=== PATIENT | male | born 1955 | race Caucasian/White ===

== ENCOUNTER 2017-03-07 08:56 | Day surgery (SDC) | payer OTHER ==
[~2017-03-07] VITALS: Ht 188 cm; Wt 72.5 kg
[2017-03-07] VITALS (10 sets, daily range): BP systolic 128–153; BP diastolic 77–96; PULSE 62–79; RESP 13–18; O2SAT 93–99
[~2017-03-07 08:56] MED LIST: ALBU8.5H2 INHALATION; ASPI-973 PO; CAFFEINE; CeFAZolin 2 Gm/50 mL D5W IV Premix IV ONE; IBUP200C PO; SALM50DI IH
[2017-03-07] MEDS ORDERED: Ondansetron 2 mg/mL 2 mL Inj ONE (08:57)
[2017-03-07] MEDS ORDERED: MetoCLOpramide 5 mg/mL 2 mL Inj ONE (08:57)
[2017-03-07] MEDS ORDERED: Rocuronium 10 mg/mL 5 mL Inj ONE (08:57)
[2017-03-07] MEDS ORDERED: Dexamethasone 4 mg/mL Inj ONE (08:57)
[2017-03-07] MEDS ORDERED: fentaNYL-PF 50 mCg/mL 2 mL Inj ONE (08:57)
[2017-03-07] MEDS ORDERED: Phenylephrine 10,000 mCg/mL Inj ONE (08:57)
[2017-03-07] MEDS ORDERED: Propofol 10,000 mCg/mL 20 mL Inj ONE (08:57)
[2017-03-07] MEDS: Lactated Ringer's 1,000 ML IV SCH ×2 (09:09→12:21)
[2017-03-07] MEDS ORDERED: Lactated Ringer's 1,000 ML IV SCH (12:04)
[2017-03-07] MEDS ORDERED: Lactated Ringer's 500 ML IV PRN (12:04)
--- NOTE | 2017-03-07 12:04 | PCM.HPANE ---
Patient Data Surgeon Admitting Provider: Attending Provider:Caryn Jaquez MD Primary Care Physician:Acacia Other Provider:Martin Ga Anesthesia Reason for Visit Right Inguinal Hernia Ht/WT & BMI Height (Feet): 6 Height (Inches): 2 Weight (Kilograms): 72.5 Body Mass Index 20.00 Allergies Coded Allergies: Penicillins (Verified Allergy, Unknown, hives, 03/01/17) Past Anesthesia History Anesthesia History: Denies:: Abnormal Airway, Anesthesia Reactions, Difficult Intubation, Fam Anesthesia Reaction, Fam Malignant Hypertherm, Malignant Hyperthermia Diabetes History Hx Diabetes?: No MRSA MRSA: No Medications Home Meds Incl Beta Rosalva: No Reported Medications [caffeine] No Conflict Check Daily oral caffeine supplement 03/01/17 Ibuprofen 200 Mg [id number] Mg PO QID PRN For Pain Ref 0 03/01/17 Salmeterol Xinafoate (Serevent Diskus)50 Mcg/Puff Inhaler1,400 Mcg IH PRN For Shortness of Breath 03/01/17 Aspirin 81 Mg Dajlbu01 Mg PO DAILY Ref 0 03/01/17 Albuterol HFA (Proair HFA)8.5 Gm Hfa.aer.ad2 Puffs INHALATION Q4H PRN For Shortness of Breath #1 INHALER 03/01/17 History History of ENT Problems?: No HEENT History: Denies:: Abnormal Airway Difficult Intubation Dysphagia Hearing Problem Sinus Problem TMJ Denture Type: Full- Upper Teeth Condition: Missing Teeth Hx of Heart Problems?: No Cardiovascular History: Denies:: AICD Abdominal Aortic Aneurism Atrial Fibrillation Cardiac Surgery Chest Pain Congestive Heart Failure Coronary Artery Disease Edema Heart Murmur Hypertension Irregular Heartbeat Pacemaker Peripheral Vascular Rheumatic Fever Thrombophlebitis Valvular Heart Disease Hx of Respiratory Problem?: Yes Respiratory History: Positive for:: COPD Cough Use of Inhalers / NEBS Denies:: Asthma Chest Surgery Dyspnea Emphysema Hemoptysis Oxygen Administration Pneumonia Pulmonary Embolism Tuberculosis Use of C-PAP Machine Hx Neurologic Problems?: No Neurological History: Denies:: Alzheimer's Disease CVA Dementia Dizziness Headaches Multiple Sclerosis Parkinson's Disease Peripheral Neuropathy Seizures TIA Hx of GI Problems?: Yes Gastrointestinal History: Denies:: Cirrhosis Diverticulitis Gall Bladder Disease Gastroesphageal Reflux Gastrointestinal Bleeding Heartburn Hepatitis Hiatal Hernia Liver Disease Rectal Bleeding Other GI Pertinent History: right inguinal hernia current admission problem Hx of Problems?: No Genitourinary History: Denies:: HX of Hemodialysis Kidney Stones Urinary Tract Infection HX of Peritoneal Dialysis: No Male Hx: Positive for:: Scrotal Mass Testicular Surgery Denies:: Prostate Problems Skin History: Denies:: History Skin Disorders? Pressure Ulcers Hx Musculoskeletal Problems?: Yes Musculoskeletal History: Positive for:: Back Injury ([facility] back strain r/t work - sees [facility] chiropractor) Denies:: Degenerative Joint Fibromyalgia Joint Replacement Musculoskeletal Trauma Myasthenia Gravis Osteoarthritis Rheumatoid Arthritis Systemic Lupus Hx of Psycho/Social Problems?: No Psycho Social History: Denies:: Anxiety Bipolar Disorder Hx Depression Suicide Attempt Hx Surgeries?: Yes (appe) Hx Any Other Health Problems?: Yes Other History: Denies:: Cancer Thyroid Disease Hx Diabetes: No Hx Alcohol Use: YesAlcoholic Drinks Per Day: 6-12 beers 3xweekHave You Smoked inLast 12 mo: Yes Stop/Bang S-Snoring: Do You Snore Loudly: No T-Tired: feel tired, fatigued: No O-Obsered: Observed not breath: No P-Blood Pressure: treated: No B- Body Mass Index > 35 kg/m2: No A- Age over 50: Yes N- Neck Large Circumference: No G- Gender Male: Yes GUY Total Score: 2 Risk Assessment Category Category 1A: Patient has history of documented sleep apnea, and HAS NOT received any narcotic, sedative or anesthesia administration during this stay. Category 1B: Patient has history of documented sleep apnea, and HAS received any narcotic , sedative or anesthesia administration during this stay Category 2: Patient has SUSPECTED Obstructive Sleep Apnea, and HAS received any narcotic , sedative or anesthesia administration during this stay. Category 3: Patient has SUSPECTED Obstructive Sleep Apnea and HAS NOT received narcotic, sedative or anesthesia administration during this stay. Category 4: Outpatient in Procedural Areas with known sleep apnea or who screen positive for High Risk via the STOP/BANG questionnaire. Exam Exam Vital Signs Vital Signs Date Time Temp Pulse Resp B/P Pulse Ox O2 Delivery O2 Flow Rate FiO2 03/07/17 09:09 36.3 79 16 128/79 99 Room Air General Appearance: Alert, Oriented X3, Cooperative, No Acute Distress HEENT/AIRWAY: MP 2, Neck Movement (FROM), Mouth Opening Lungs: Clear to Auscultation, Diminished Heart: Exam Unremarkable, Regular Rate/Rhythm, No Murmurs/Rubs/Gallops Meds/Labs/Diagnostics Admission Meds Current Medications Lactated Ringer's (Lr) 1,000 ml @ 120 mls/hr Q8H20M IV Last administered on t 09:09; Start 03/07/17 at 05:00; Stop 03/07/17 at 13:19 Plan Impression Patient chart reviewed, patient interviewed and anesthestic plan with risks, benefits, and alternatives discussed, and informed consent obtained. NPO per Anesth. Guidelines: Yes ASA Physical Status: ASA2 Mod Systemic Disease Anesthetic Plan: GA Bene/Risks/Altern/Consents: Yes HP Complete Prior to Induction: Yes Donte Washington MD Mar 07, 2017 09:47
[2017-03-07] MEDS ORDERED: Phenylephrine 10,000 mCg/mL Inj IVPUSH PRN (12:05)
[2017-03-07] MEDS ORDERED: EPHEDrine Sulfate 50 mg/mL Inj IVPUSH PRN (12:05)
[2017-03-07] MEDS ORDERED: Albuterol-Ipratropium 3 mL Inhalation Solution NEB PRN (12:05)
[2017-03-07] MEDS ORDERED: HYDROmorphone 1 mg/mL Inj IVPUSH PRN (12:05)
[2017-03-07] MEDS ORDERED: MetoCLOpramide 5 mg/mL 2 mL Inj IVPUSH PRN (12:05)
[2017-03-07] MEDS ORDERED: Atropine 0.4 mg/mL Inj IVPUSH PRN (12:05)
[2017-03-07] MEDS ORDERED: Labetalol 5 mg/mL 4 mL Inj IV PRN (12:05)
[2017-03-07] MEDS ORDERED: Ondansetron 2 mg/mL 2 mL Inj IVPUSH PRN (12:05)
[2017-03-07] MEDS ORDERED: Bupivacaine-MPF 0.5% 30 mL Inj INFILTRATE ONE (12:20)
[2017-03-07] MEDS ORDERED: oxyCODONE-Acetamin 5-325 mg Tablet PO PRN (13:45)
--- NOTE | 2017-03-07 13:46 | PCM.SURGOP ---
Surgical Operative Report Date of Service: Mar 07, 2017 Pre Operative Diagnosis Right inguinal hernia Post Operative Diagnosis Indirect right inguinal hernia Procedure: Laparoscopic right inguinal hernia repair Surgeon and Access Lead: Surgeon: Caryn Jaquez MD Assistants: Sukhdev Arreaga MD R3; Jordan Jarquin MS3 Indication for Procedure This is a 62-year-old man who presented with a right groin bulge consistent with inguinal hernia. It caused significant discomfort and therefore he desired repair. Findings: Indirect hernia defect without incarcerated viscera. Totally extraperitoneal repair performed. Adhesions present at the location of previous open appendectomy. Procedure Details The patient was brought to the operating room and placed in supine position. General anesthesia was induced. A warming blanket and SCDs were placed. Antibiotics were infused. Both arms were tucked. The operative field was prepped and draped in a sterile fashion. A pause was performed to confirm the correct patient, procedure, site, and side. A transverse infraumbilical incision was made and the anterior rectus fascia was incised. An 11 mm port was placed with a blunt tip posterior to the rectus abdominis and preperitoneal insufflation commenced. A 0 degree camera was used to develop the preperitoneal space, leaving the epigastric anterior. Two additional 5 mm ports were then placed in the midline below the umbilicus. The preperitoneal space was then developed and dissected with care taken to preserve the epigastrics and to develop a landing zone for the mesh both medially and laterally. This dissection was primarily blunt and good hemostasis was achieved. The adhesions were present in the right lower q uadrant from previous appendectomy. This required some sharp dissection to adequately mobilize the peritoneum posteriorly. The hernia defect was seen medial to the epigastrics and the sac was reduced. Mauricio's ligament was identified and cleared off. A right-sided piece of Bard 3DMax mesh, medium size, 3.3 x 5.4 inches, was inserted via the infraumbilical port. It was fashioned into the correct location such that the direct defect was well covered. An absorbable tacking device was then used to tack the mesh to Mauricio's ligament. The mesh was checked again for appropriate positioning and no sign of wrinkles or creases. A second tack was placed lateral to the epigastrics in the anterior abdominal wall. The ports were removed and the desufflated. The fascia was closed with interrupted 0-0 Vicryl. Skin was closed with 4-0 Monocryl. Local anesthetic was infused at all port seats. Sterile dressings were placed. The patient was awakened from general anesthesia and taken to the postoperative care unit in good condition. Complications There were no periprocedural complications identified. Surgical Specimen Removed: No Specimen sent to Pathology: No Anesthetic Plan: GA Grafts, Implants: Implants-See Implant Record Output, Estimated Blood Loss: 5 (ml) Blood Administration during heath: No Caryn Jaquez MD Mar 07, 2017 13:46
--- NOTE | 2017-03-07 13:52 | PCM.DISURG ---
Surgical Discharge Instruction Date of Service Mar 07, 2017 Dates of Hospitalization Date of Hospital Admission Providers Admitting Physician: Primary Care Physician: Nopcp Attending Physician: Caryn Jaquez MD Discharge Diagnosis Post Operative diagnosis Indirect right inguinal hernia Activity Discharge Activity-General: Activity as pain allows, No lifting >10 pounds for 4-6 weeks, No driving while taking narcotic Dressing and Incisional Care Dressing Care: Allow Steri Stripes to fall off, Remove outer dressing after 24 hrs Hygiene: May shower after (24 hours), DO NOT soak incision under water, NO bathtub, hot tub or whirlpool Follow Up Plan Follow Up Plan Follow up in the general surgery clinic in 7-10 days. Call your provider for: Fever, Chills, Increasing abdominal pain, Nausea, Vomiting, Wound redness, Increasing wound pain, Discharge @ incision, pus discharge Aram Arreaga MD Mar 07, 2017 13:52
[2017-03-07] MEDS: fentaNYL-PF 50 mCg/mL 2 mL Inj IVPUSH PRN ×2 (14:00→14:15)
--- NOTE | 2017-03-07 14:27 | PCM.ANEP1 ---
Post Anesthesia PACU Phase 1 Assessment Vital Signs Vital Signs Date Time Temp Pulse Resp B/P Pulse Ox O2 Delivery O2 Flow Rate FiO2 03/07/17 13:55 67 17 146/96 94 Room Air 03/07/17 13:50 74 17 152/86 93 Room Air 03/07/17 13:45 75 13 146/93 98 Simple Mask 10 03/07/17 13:40 36.4 75 17 137/86 98 Simple Mask 10 03/07/17 09:09 36.3 79 16 128/79 99 Room Air Anesthetic Administered: GA Level of Alertness: Awake, talking [place] with Equal Strength: Yes Pain: No Nausea or Vomiting: No CV Function & Hydration Stable: No Airway Device: N/A Oxygen Delivery: Simple Mask Lungs: Clear to Auscultation, Diminished Dermatome Level: Full Sensation PACU Phase 2 Assessment Complications: No Follow up Care: N/A Patient Instructions Provided: N/A Donte Washington MD Mar 07, 2017 14:27
== END 2017-03-07 23:59 | disposition home or self-care (01) ==
LOC: SAS 08:56
PROVIDERS: ATTEND Surgery
PROC: 0YU54KZ Supplement Right Inguinal Region with Nonautologous Tissue Substitute, Percutaneous Endoscopic Approach (ICD-10-PCS; principal; 2017-03-07 11:00)
DX: K40.90 Unilateral inguinal hernia, without obstruction or gangrene, not specified as recurrent (principal); F17.210 Nicotine dependence, cigarettes, uncomplicated
CPT/HCPCS: 49650; C1781; J1100; J1885; J2370; J2405; J2765; J3010; J7120

== ENCOUNTER 2017-04-17 10:45 | Day surgery (SDC) | payer OTHER ==
[~2017-04-17] VITALS: Ht 188 cm; Wt 76.0 kg
[~2017-04-17 10:45] MED LIST changes: -CeFAZolin 2 Gm/50 mL D5W IV Premix IV ONE; +Lactated Ringer's 1,000 ML IV ONE
[2017-04-17] MEDS ORDERED: Propofol 10,000 mCg/mL 20 mL Inj ONE (10:46)
[2017-04-17] MEDS ORDERED: fentaNYL-PF 50 mCg/mL 2 mL Inj ONE (10:46)
[2017-04-17 11:04] VITALS: BP 137/88; PULSE 79; RESP 14; O2SAT 96
[2017-04-17] MEDS: Lactated Ringer's 1,000 ML IV ONE ×2 (11:59→12:30)
[2017-04-17] MEDS ORDERED: Lactated Ringer's 1,000 ML IV SCH (12:04)
--- NOTE | 2017-04-17 12:04 | PCM.HPANE ---
Patient Data Surgeon Admitting Provider: Attending Provider:Caryn Jaquez MD Primary Care Physician:Acacia Other Provider:Martin Ga Anesthesia Reason for Visit Family History Colon Cancer Ht/WT & BMI Height (Feet): 6 Height (Inches): 2 Weight (Kilograms): 76 Body Mass Index 21.00 Allergies Coded Allergies: Penicillins (Verified Allergy, Unknown, hives, 03/01/17) Past Anesthesia History Anesthesia History: Denies:: Abnormal Airway, Anesthesia Reactions, Difficult Intubation, Fam Anesthesia Reaction, Fam Malignant Hypertherm, Malignant Hyperthermia Diabetes History Hx Diabetes?: No MRSA MRSA: No Medications Blood Thinner: Aspirin Last Dose Blood Thinner: Apr 14, 2017 Reported Medications [caffeine] No Conflict Check Daily oral caffeine supplement 03/01/17 Ibuprofen 200 Mg [id number] Mg PO QID PRN For Pain Ref 0 03/01/17 Salmeterol Xinafoate (Serevent Diskus)50 Mcg/Puff Inhaler1,400 Mcg IH PRN For Shortness of Breath 03/01/17 Aspirin 81 Mg Nguqiv91 Mg PO DAILY Ref 0 03/01/17 Albuterol HFA (Proair HFA)8.5 Gm Hfa.aer.ad2 Puffs INHALATION Q4H PRN For Shortness of Breath #1 INHALER 03/01/17 History History of ENT Problems?: No HEENT History: Denies:: Abnormal Airway Difficult Intubation Dysphagia Hearing Problem Sinus Problem TMJ Denture Type: Full- Upper Teeth Condition: Within Normal Limits Missing Teeth Hx of Heart Problems?: No Cardiovascular History: Denies:: AICD Abdominal Aortic Aneurism Atrial Fibrillation Cardiac Surgery Chest Pain Congestive Heart Failure Edema Heart Murmur Hypertension Irregular Heartbeat Pacemaker Rheumatic Fever Thrombophlebitis Valvular Heart Disease Hx of Respiratory Problem?: Yes Respiratory History: Positive for:: COPD (CONTROLLED WITH INHALERS) Cough Denies:: Asthma Chest Surgery Dyspnea Emphysema Hemoptysis Oxygen Administration Pneumonia Pulmonary Embolism Tuberculosis Use of C-PAP Machine Hx Neurologic Problems?: No Neurological History: Denies:: Alzheimer's Disease CVA Dementia Dizziness Headaches Multiple Sclerosis Parkinson's Disease Seizures Hx of GI Problems?: Yes Hx of Problems?: No Genitourinary History: Denies:: HX of Hemodialysis Kidney Stones Urinary Tract Infection HX of Peritoneal Dialysis: No Male Hx: Positive for:: Scrotal Mass Testicular Surgery Denies:: Prostate Problems Skin History: Denies:: History Skin Disorders? Pressure Ulcers Hx Musculoskeletal Problems?: Yes Musculoskeletal History: Positive for:: Back Injury ([facility] back strain r/t work - sees [facility] chiropractor) Denies:: Degenerative Joint Fibromyalgia Joint Replacement Musculoskeletal Trauma Systemic Lupus Hx of Psycho/Social Problems?: No Psycho Social History: Positive for:: Anxiety Hx Depression (SITUATIONAL, RECENT LOSS OF BROTHER) Denies:: Bipolar Disorder Suicide Attempt Hx Surgeries?: Yes (appe, HERNIA) Hx Any Other Health Problems?: Yes Other History: Denies:: Cancer Thyroid Disease Hx Diabetes: No Hx Alcohol Use: Yes (2-3 BEERS DAILY/ WEEKENDS 10-12/DAY) Smoking Status: Current Every Day Smoker Have You Smoked inLast 12 mo: Yes Stop/Bang Treated for Sleep Apnea?: No Do You Have a CPAP Machine?: No S-Snoring: Do You Snore Loudly: No T-Tired: feel tired, fatigued: No O-Obsered: Observed not breath: No P-Blood Pressure: treated: Yes B- Body Mass Index > 35 kg/m2: No A- Age over 50: Yes N- Neck Large Circumference: No G- Gender Male: Yes GUY Total Score: 3 GUY Category 2: Yes Risk Assessment Category Category 1A: Patient has history of documented sleep apnea, and HAS NOT received any narcotic, sedative or anesthesia administration during this stay. Category 1B: Patient has history of documented sleep apnea, and HAS received any narcotic , sedative or anesthesia administration during this stay Category 2: Patient has SUSPECTED Obstructive Sleep Apnea, and HAS received any narcotic , sedative or anesthesia administration during this stay. Category 3: Patient has SUSPECTED Obstructive Sleep Apnea and HAS NOT received narcotic, sedative or anesthesia administration during this stay. Category 4: Outpatient in Procedural Areas with known sleep apnea or who screen positive for High Risk via the STOP/BANG questionnaire. Exam Exam Vital Signs Vital Signs Date Time Temp Pulse Resp B/P Pulse Ox O2 Delivery O2 Flow Rate FiO2 04/17/17 11:04 37 79 14 137/88 96 Room Air General Appearance: Alert HEENT/AIRWAY: MP 2, Neck Movement (from, 3 fb) Lungs: Clear to Auscultation Heart: Regular Rate/Rhythm Meds/Labs/Diagnostics Admission Meds Current Medications Lactated Ringer's (Lr) 1,000 ml @ 10 mls/hr Q24H ONCE IV Last administered on 04/17/17t 11:59; Start 04/17/17 at 06:00; Stop 04/18/17 at 05:59 Plan Impression Patient chart reviewed, patient interviewed and anesthestic plan with risks, benefits, and alternatives discussed, and informed consent obtained. NPO per Anesth. Guidelines: Yes ASA Physical Status: ASA3 Severe Disease Anesthetic Plan: MAC Bene/Risks/Altern/Consents: Yes HP Complete Prior to Induction: Yes Dwaine Elmore MD Apr 17, 2017 12:04
[2017-04-17] MEDS ORDERED: MetoCLOpramide 5 mg/mL 2 mL Inj IVPUSH PRN (12:05)
[2017-04-17] MEDS ORDERED: Ondansetron 2 mg/mL 2 mL Inj IVPUSH PRN (12:05)
[2017-04-17 12:43] VITALS: BP 102/63; PULSE 69; RESP 16; O2SAT 99
--- NOTE | 2017-04-17 12:46 | PCM.ANEP1 ---
Post Anesthesia PACU Phase 1 Assessment Vital Signs Vital Signs Date Time Temp Pulse Resp B/P Pulse Ox O2 Delivery O2 Flow Rate FiO2 04/17/17 12:43 36.3 69 16 102/63 99 Room Air 04/17/17 11:04 37 79 14 137/88 96 Room Air Anesthetic Administered: MAC Level of Alertness: Awake, talking [place]'s with Equal Strength: Yes Pain: No Nausea or Vomiting: No CV Function & Hydration Stable: Yes Airway Device: Oxygen Delivery: Room Air Lungs: Clear to Auscultation PACU Phase 2 Assessment Complications: No Follow up Care: N/A Patient Instructions Provided: N/A Dwaine Elmore MD Apr 17, 2017 12:46
[2017-04-17 12:52] VITALS: BP 109/68; PULSE 64; RESP 15; O2SAT 98
[2017-04-17 13:02] VITALS: BP 118/77; PULSE 68; RESP 16; O2SAT 98
--- NOTE | 2017-04-17 13:57 | ENDO ---
[address] [address] ENDOSCOPY PROCEDURE PATIENT: DMITRY PRIETO : 1955 MR#: [id number] ADMIT: 04/17/2017 JOB ID: [id number] DATE: 04/17/2017 PRE-PROCEDURE DIAGNOSIS: Colon cancer screening. POSTPROCEDURE DIAGNOSIS: Colon cancer screening. PROCEDURE PERFORMED: Colonoscopy. SURGEON: Caryn Jaquez M.D. Anesthesia: Monitored anesthesia care Instrument: Olympus [id number] DL PREP: Good. FINDINGS: 1. Trace diverticulosis in the left colon. 2. A single 5 mm polyp was found at 48 cm and was removed with cold forceps. HISTORY OF PRESENT ILLNESS: This is a 62-year-old man who presented to my office with complaints of a groin hernia. At the time of evaluation, it was also discovered that his brother was diagnosed with colon cancer in his 40s, and the patient himself had never had a colonoscopy. Therefore, screening colonoscopy is indicated. DESCRIPTION OF PROCEDURE: The patient was brought to the procedure suite and placed in the left lateral decubitus position. Moderate anesthesia was induced by the anesthesiologist. External examination is performed and he had small external hemorrhoidal skin tags. Digital rectal examination was performed and was normal. The colonoscope was advanced to the cecum which was identified by the coalescence of the tenia in the ileocecal valve. Withdrawal time was 27 minutes. A single polyp was found at 48 cm in the left colon. It was removed with cold forceps. One diverticulum was also seen in the left colon. There are no additional masses, strictures, or mucosal abnormalities. Retroflexed view of the rectum was normal. The colonoscope was removed. The patient tolerated this procedure well. COMPLICATIONS: None. ESTIMATED BLOOD LOSS: None. SPECIMENS: Left colon polyp sent for permanent pathology. [facility] HOSPITALRossana
--- NOTE | 2017-04-19 10:27 | PATH ---
SURGICAL PATHOLOGY Attending Physician:Caryn Jaquez MD CASE STATUS: Signed Out PATIENT NAME: DMITRY PRIETO PID: [id number] : 1955 DATE COLLECTED:04/17/2017 19:00 SPECIMEN: Colon, Polyp CLINICAL HISTORY: 1). LEFT COLON POLYP AT 48 CM FINAL DIAGNOSIS: Left Colon, Polyp at 48 cm, Biopsy: Colonic mucosa with no significant diagnostic abnormality consistent with polypoid redundancy. Additional levels were examined. Negative for dysplasia and malignancy. ICD10: K63.5 GROSS DESCRIPTION: The specimen is received in one formalin filled container labeled with the patient's labeled "left colon polyp at 48 CM" and consists of a 0.4 x 0.2 x 0.2 CM portion of tissue which is entirely submitted in one cassette. 04/17/2017VT ICD-9 CODES: CPT CODES: 1: 69945 Electronically Signed Out Marielle Marcano MD [facility] [address], [place] [address] Technical component performed at [facility], [facility] [address], [place], [address]
== END 2017-04-17 23:59 | disposition home or self-care (01) ==
LOC: END 10:45 → EDUNIT# 12:00 → END 23:59
PROVIDERS: ATTEND Surgery
DX: Z12.11 Encounter for screening for malignant neoplasm of colon (principal); Z80.0 Family history of malignant neoplasm of digestive organs; K63.5 Polyp of colon; K57.30 Diverticulosis of large intestine without perforation or abscess without bleeding; J44.9 Chronic obstructive pulmonary disease, unspecified; F41.8 Other specified anxiety disorders; F17.210 Nicotine dependence, cigarettes, uncomplicated; Z79.82 Long term (current) use of aspirin
CPT/HCPCS: 45380; J2250; J2704; J3010; J7120